=== PATIENT | female | born 1940 | race Two or more races ===

== ENCOUNTER → 2017-06-28 | Outpatient (CLI) | payer OTHER | END | disposition home or self-care (01) | LOC: RAD 17:10 | DX: M25.571 Pain in right ankle and joints of right foot (principal) ==

== ENCOUNTER 2017-08-16 15:01 | Outpatient (CLI) | payer OTHER | END 2017-08-16 15:17 | disposition home or self-care (01) | LOC: RAD 15:01 | DX: M25.561 Pain in right knee (principal) ==